=== PATIENT | male | born 1965 | race Caucasian/White ===

== ENCOUNTER 2019-01-06 10:54 | Emergency (ER) | payer OTHER, SELFPAY ==
[2019-01-06 10:55] VITALS: BP 121/75; PULSE 87; RESP 14; TEMP 36.8; O2SAT 98; O2SAT 99; BMI 71.1
--- NOTE | 2019-01-06 11:09 | RAD_ITS ---
STUDY: X-RAY CHEST REASON FOR EXAM: Male, 53 years old. Weakness. Near syncope. TECHNIQUE: Single AP portable view of the chest. COMPARISON: None. FINDINGS: EKG electrodes are seen. The lungs are clear and expanded. There is no demonstrated pleural abnormality. Normal size heart. Normal mediastinum and marce. Normal visualized pulmonary arteries. Normal visualized aortic arch and descending thoracic aorta. Normal visualized thoracic spine. Normal visualized ribs, clavicles, and shoulders. There is no demonstrated abnormality of the visualized soft tissue structures of the upper abdomen. RAD/Chest 1 View (Portable) IMPRESSION: Normal x-ray examination of the chest. Electronically Signed: Greg Sommer MD at 11:27 EST , Service support ,
--- NOTE | 2019-01-06 11:09 | EKG12_ITS ---
Test Reason : NEAR SYNCOPE Blood Pressure : / mmHG Vent. Rate : 090 BPM Atrial Rate : 090 BPM P-R Int : 166 ms QRS Dur : 090 ms QT Int : 342 ms P-R-T Axes : 047 034 031 degrees QTc Int : 418 ms Normal sinus rhythm Nonspecific T wave abnormality Abnormal ECG Confirmed by FRANCO BOSTON, GREGORY ([id number]), photographic editor BRINA WOLFF ([id number]) on 01/10/2019 10:30:10 AM Referred By: FELIPE Confirmed By:GREGORY GAMEZ MD
[2019-01-06] MEDS: 0.9% Normal Saline 1,000 ML 1000 ML IV ×2 (11:12→11:58)
[2019-01-06 11:28] LABS: Absolute Lymphocyte Count 0.94 X10^3/ul (0.83-4.51); Absolute Neutrophil Count 3.9 X10^3/uL (2.0-7.7); Basophil# 0.01 X10^3/uL; Basophil% 0.2 % (0-1); Eosinophils% 1.8 % (0-5); Hematocrit 41.8 % (40-54); Hemoglobin 14.1 g/dl (13.0-16.5); Lymphocyte # 0.94 X10^3/ul (4.0); Lymphocyte % 17.2 % (19-41); Mean Corp Hgb Conc 33.7 g/gl (32-36); Mean Corpuscular Hgb 29.4 pg (27.0-32.0); Mean Corpuscular Volume 87.1 fL (80-94); Mean Platelet Vol. 8.7 fl (6.2-12.0); Monocyte# 0.48 X10^3/uL; Monocyte% 8.8 % (0-10); Neutrophil # 3.92 X10^3/uL (2.7-7.7); Neutrophil % 71.6 % (47-70); POSITIVE COUNT NO; POSITIVE DIFFERENTIAL NO; POSITIVE MORPHOLOGY YES; Platelet Count 109 K/mm3 (150-450); RBC Distribution Width SD 44.5 fl (35.1-43.9); White Blood Count 5.5 K/mm3 (4.4-11.0)
[2019-01-06 11:29] LABS: Differential Indicated SCAN CRITERIA MET
[2019-01-06 11:42] LABS: Anion Gap 11 (5-15); BUN 23 mg/dL (7-18); BUN/Creat Ratio 13.7 RATIO (10-20); Chloride 103 mmol/L (98-107); Creatinine, Serum 1.68 mg/dL (0.70-1.30); EST Glomerular Filtration Rate 45 mL/min (>60); Est Glom Filt Rate - Afr Amer 55 mL/min (>60); Glucose 196 mg/dL (74-106); Potassium 3.9 mmol/L (3.5-5.1); Sodium Level 135 mmol/L (136-145)
[2019-01-06 11:59] VITALS: BP 115/72; PULSE 82; RESP 12; TEMP 36.8; O2SAT 96
[2019-01-06 12:01] VITALS: O2SAT 98
[2019-01-06 12:06] VITALS: BP 102/92; BP 107/66; BP 116/77; PULSE 83; PULSE 86; PULSE 87
--- NOTE | 2019-01-06 13:54 | ED.VISSUMM ---
- ER Visit Summary Date of Service: 01/06/19 Chief Complaint: Near syncope History of Present Illness: The patient is a 53 M with near syncope today at work. He felt hot and sat down. His symptoms resolved. He did not pass out or fall. He has been sick for the last several days and describes nausea, vomiting, diarrhea, headaches, feeling hot, and feeling cold. He has a history of diabetes and hypertension. He also reports a history of asthma. Denies any headache, weakness, or numbness. Denies chest pain or shortness of breath. Denies any bleeding. As any history of syncope or seizure. Physical Examination: Afebrile and vital signs unremarkable. Head and neck are atraumatic. Heart regular rate and rhythm. Lungs clear. Abdomen soft. Cranial nerves grossly intact. Good strength and sensation grossly. Normal affect. Test Results: EKG showed sinus rhythm at a rate of 90. Nonspecific T wave changes. No sign of acute ischemia or infarction pattern. Troponin normal. Platelets 109, sodium 135, glucose 190, BUN 23, creatinine 1.68. Chest x-ray was normal. Emergency Department Course and Treatment: Orthostatics were done and negative. Patient was placed on a monitor. He received a fluid bolus. He had no further symptoms or complaints. No dizziness. No dysrhythmias. No change in his exam. I suspect the patient may have been mildly dehydrated from nausea, vomiting, and diarrhea. His GI symptoms have resolved. He will stay hydrated. Stay rested. Follow-up with primary care. Return right away for any new or worsening issues. Treatment Plan: As above Disposition: Discharge Impression: 1. Near syncope This note was generated with [employer] dictation software. It may contain incorrect words, spelling, and punctuation that were not noted in review of the chart prior to signing ED Disposition - Plan for ED Patient: Referrals: Colby Gonzales DO [Primary Care Provider] -
--- NOTE | 2019-01-06 13:57 | ED.DEP ---
ED Disposition - Plan for ED Patient: Instructions: ED Near Syncope Unkn Referrals: Colby Gonzales DO [Primary Care Provider] -
[2019-01-06 14:22] VITALS: BP 135/69; PULSE 72; RESP 16; O2SAT 98
== END 2019-01-06 14:23 | disposition home or self-care (01) ==
LOC: ED 11:36
PROVIDERS: Emergency Provider Emergency Medicine; Family Provider Student in an Organized Health Care Education/Training Program; PCP Student in an Organized Health Care Education/Training Program
DX: R55 Syncope and collapse (principal); E86.0 Dehydration; E11.9 Type 2 diabetes mellitus without complications; I10 Essential (primary) hypertension; J45.909 Unspecified asthma, uncomplicated
CPT/HCPCS: 71045; 80048; 84484; 85025; 93005; 96360; 96361; 99285

== ENCOUNTER 2021-10-12 08:22 | Inpatient (IN) | payer OTHER, SELFPAY ==
[2021-10-12] VITALS (20 sets, daily range): BP systolic 92–107; BP diastolic 50–77; PULSE 73–88; RESP 15–20; TEMP 36–36.6; O2SAT 83–96; BMI 32.8
--- NOTE | 2021-10-12 09:19 | RAD_ITS ---
STUDY: X-RAY CHEST REASON FOR EXAM: Male, 56 years old. Cough TECHNIQUE: Single AP portable upright view of the chest. COMPARISON: Portable AP upright chest x-ray 01/06/2019 FINDINGS: Ill-defined, patchy subsegmental opacities are noted in the bilateral mid to lower lung zones, consistent with infection There is no demonstrated pleural abnormality. Normal size heart. Normal mediastinum and marce. Normal visualized pulmonary arteries. Normal visualized aortic arch and descending thoracic aorta. Normal visualized thoracic spine. Normal visualized ribs, clavicles, and shoulders. There is no demonstrated abnormality of the visualized soft tissue structures of the upper abdomen. RAD/Chest 1 View (Portable) IMPRESSION: Patchy bilateral infectious pulmonary infiltrates. Differential includes viral pneumonia, such as Covid 19. Electronically Signed: Harish Cueva MD at 9:55 EST , Service support ,
--- NOTE | 2021-10-12 09:19 | EKG12_ITS ---
Test Reason : SOB Blood Pressure : / mmHG Vent. Rate : 079 BPM Atrial Rate : 079 BPM P-R Int : 180 ms QRS Dur : 082 ms QT Int : 370 ms P-R-T Axes : 064 040 032 degrees QTc Int : 424 ms Normal sinus rhythm Normal ECG Confirmed by FRANCO BOSTON, GREGORY ([id number]), writer editor MAEVE CALABRESE ([id number]) on 10/14/2021 10:54:40 AM Referred By: RAMESH Confirmed By:GREGORY GAMEZ MD
[2021-10-12 09:30] LABS: Absolute Lymphocyte Count 0.98 X10^3/uL (0.83-4.51); Absolute Neutrophil Count 4.4 X10^3/uL (2.0-7.7); Basophil# 0.02 X10^3/uL; Basophil% 0.3 % (0-1); Eosinophil# 0.08 X10^3/uL; Eosinophils% 1.4 % (0-5); Hematocrit 40.3 % (40-54); Hemoglobin 13.4 g/dL (13.0-16.5); Lymphocyte # 0.98 X10^3/ul (0.83-4.51); Lymphocyte % 16.8 % (19-41); Mean Corp Hgb Conc 33.3 g/dL (32-36); Mean Corpuscular Hgb 28.6 pg (27.0-32.0); Mean Corpuscular Volume 86.1 fL (80-94); Mean Platelet Vol. 9.6 fl (6.2-12.0); Monocyte# 0.27 X10^3/uL; Monocyte% 4.6 % (0-10); NRBC Flagged by Analyzer 0 % (0-5); Neutrophil # 4.39 X10^3/uL (2.7-7.7); Platelet Count 167 K/mm3 (150-450); RBC Distribution Width CV 14.4 % (11.6-14.6); RBC Distribution Width SD 45.7 fl (35.1-43.9); Red Blood Count 4.68 M/mm3 (4.6-6.2); White Blood Count 5.9 K/mm3 (4.4-11.0)
[2021-10-12 09:47] LABS: ALB/GLOB Ratio 0.6 RATIO (0.9-2.4); AST(SGOT) 31 U/L (15-37); Alanine Aminotransfer ALT/SGPT 33 U/L (16-61); Albumin, Serum 2.6 g/dL (3.2-5.0); Alkaline Phosphatase 51 U/L (45-117); Anion Gap 11 (5-15); BUN 73 mg/dL (7-18); Calcium,Total 8.8 mg/dL (8.5-10.1); Chloride 106 mmol/L (98-107); Creatinine, Serum 1.78 mg/dL (0.70-1.30); EST Glomerular Filtration Rate 42 mL/min (>60); Est Glom Filt Rate - Afr Amer 51 mL/min (>60); Estimated Creatinine Clearance 46.71 ml/min; Globulin 4.7 g/dL (2.2-4.2); Glucose 179 mg/dL (74-106); Lactic Acid 1.5 mmol/L (0.4-1.9); Protein, Total 7.3 g/dL (6.4-8.2); Sodium Level 136 mmol/L (136-145); Troponin-I HS 5 pg/mL (3.0-78.0)
--- NOTE | 2021-10-12 09:59 | EDS_ITS ---
HPI History of Present Illness Chief Complaint: Shortness of Breath Narrative Narrative: 56-year-old male presenting with shortness of breath. He states he has had Covid for 7 days. He was diagnosed at the [facility] pharmacy. He states that he did not involve his primary care physician and has not been referred for monoclonal antibodies. He is not having chest pain but he does state he has shortness of breath with exertion. He denies having fevers or chills. He states he does not have body aches. He does have some diarrhea and decreased p.o. intake. Patient has significant history of diabetes and hypertension. The patient's also states he has asthma. Patient has not been wheezing that he knows of. He states that his blood sugars have been over 200 at home. Patient already was previously vaccinated for COVID-19. [facility] Medical History Asthma Diabetes Lipoma of abdominal wall Home Medications albuterol sulfate [Ventolin Hfa (SP)] 2 puff INHALATION Q6H PRN PRN 11/14/16 [History Last Taken Unknown] budesonide-formoterol [Symbicort 160/4.5 Mcg Inhaler (SP)] 2 puff INHALATION BID 11/14/16 [History Last Taken Unknown] lisinopril [Qbrelis] 0.5 mg PO DAILY 11/14/16 [History Last Taken Unknown] montelukast 10 mg PO DAILY 11/14/16 [History Last Taken Unknown] empagliflozin-metformin [Synjardy] 1 tab PO BID 10/12/21 [History Last Taken Unknown] glimepiride 4 mg PO BID 10/12/21 [History Last Taken Unknown] Allergy/AdvReac Type Severity Reaction Status Date / Time No Known Allergies Allergy Verified 10/12/21 08:24 Surgical History H/O hernia repair Hx of tonsillectomy Social History Smoking Status: Never smoker ROS ROS ED Constitutional Constitutional ED: Denies chills or fever(s) Eyes Eyes: Denies blurry vision or diplopia ENT ENT ED: Denies rhinorrhea or sore throat Cardiovascular Cardiovascular: Denies chest pain or palpitations Respiratory/Chest Respiratory/Chest: Reports cough and dyspnea Gastrointestinal Gastrointestinal: Reports diarrhea; Denies abdominal pain, nausea or vomiting Genitourinary Genitourinary ED: Denies dysuria or hematuria Musculoskeletal Musculoskeletal: Denies arthralgias, back pain, myalgias or neck pain Integumentary Denies Abrasions or rash Neurologic Neurologic: Denies headache(s) or paresthesias EXAM Physical Exam Const Vital Signs: 10/12/21 08:23 10/12/21 08:34 10/12/21 09:24 Temperature 97.2 F L 97.2 F L 97.3 F L Temperature Source Temporal Temporal Temporal Pulse Rate 78 76 74 Respiratory Rate 20 H 20 H 18 Respiratory Effort Non-Labored Short of Breath Respiratory Depth Normal Respiratory Pattern Normal Blood Pressure 103/77 92/58 L 97/51 L Blood Pressure Mean 85 69 66 Pulse Ox 92 93 89 Pulse Ox [AMBULATING on Room Air] Pulse Ox [AMBULATING with Oxygen #1] Pulse Ox [AMBULATING with Oxygen #2] Pulse Ox [At REST on Room Air] Pulse Ox [At REST with Oxygen] Oxygen Delivery Method Room Air Room Air Room Air Oxygen Flow Rate (L/min) Oxygen Flow Rate (L/min) [AMBULATING with Oxygen #1] Oxygen Flow Rate (L/min) [AMBULATING with Oxygen #2] Oxygen Flow Rate (L/min) [At REST with Oxygen] 10/12/21 10:15 10/12/21 10:16 10/12/21 10:24 Temperature 97.2 F L Temperature Source Temporal Pulse Rate 76 78 Respiratory Rate 16 19 H Respiratory Effort Respiratory Depth Respiratory Pattern Blood Pressure 95/61 95/50 L Blood Pressure Mean 72 65 Pulse Ox 89 94 90 Pulse Ox [AMBULATING on Room Air] Pulse Ox [AMBULATING with Oxygen #1] Pulse Ox [AMBULATING with Oxygen #2] Pulse Ox [At REST on Room Air] Pulse Ox [At REST with Oxygen] Oxygen Delivery Method Room Air Nasal Cannula Nasal Cannula Oxygen Flow Rate (L/min) 2 2 Oxygen Flow Rate (L/min) [AMBULATING with Oxygen #1] Oxygen Flow Rate (L/min) [AMBULATING with Oxygen #2] Oxygen Flow Rate (L/min) [At REST with Oxygen] 10/12/21 11:10 Temperature Temperature Source Pulse Rate Respiratory Rate Respiratory Effort Respiratory Depth Respiratory Pattern Blood Pressure Blood Pressure Mean Pulse Ox Pulse Ox [AMBULATING on Room Air] 83 Pulse Ox [AMBULATING with Oxygen #1] 86 Pulse Ox [AMBULATING with Oxygen #2] 91 Pulse Ox [At REST on Room Air] 89 Pulse Ox [At REST with Oxygen] 91 Oxygen Delivery Method Oxygen Flow Rate (L/min) Oxygen Flow Rate (L/min) [AMBULATING with Oxygen #1] 2 Oxygen Flow Rate (L/min) [AMBULATING with Oxygen #2] 3 Oxygen Flow Rate (L/min) [At REST with Oxygen] 2 Positive well nourished General Appearance ED: NAD; Negative for pallor HEENT Reports moist mucous membranes atraumatic Eyes PERRL and EOMs intact bilaterally Resp normal respiratory effort Auscultation: rales bilateral GI non-tender and non-distended Palpation: soft Neuro oriented x3 Sensorium / Orientation: alert Psych mental status grossly normal Thought Process: normal thought process Skin General Skin Exam: Negative for jaundice or pallor Rashes: no rashes MDM MDM MDM Narrative Medical decision making narrative: Patient presenting with shortness of breath and history of Covid. Initially his oxygen saturations were good. I did order basic lab work and his CBC was unremarkable. Creatinine is near baseline but still elevated at 1.78. Electrolytes are normal. Lactic acid normal at 1.5. Liver function tests are normal. Troponin is negative. EKG on my interpretation shows a normal sinus rhythm with a ventricular rate of 79 bpm without sign of ischemic change. Chest x-ray on my interpretation shows multiple bilateral pulmonary infiltrates and the radiologist does agree. Patient had an elevated D-dimer and required a CTA to rule out PEs. This was performed and there are no PEs or dissection noted on the CT of the chest. There is bilateral pulmonary infiltrates. Patient was noted to be dropping his oxygen saturations down to 89%. He was ambulated and dropped down to 83%. He required 3 L to get him back up to 95%. Patient was very symptomatic and it took multiple minutes for him to feel improved. I feel at this point the patient would probably benefit from inpatient treatment. He is given dexamethasone. I spoke with the hospitalist. Patient admitted in stable condition. Impression: 1. COVID-19 pneumonitis 2. Hypoxic respiratory failure Lab Data Attestation: I reviewed the patient's lab results. Labs: Laboratory Results - last 24 hr 10/12/21 10/12/21 10/12/21 08:44 08:44 08:44 WBC 5.9 RBC 4.68 Hgb 13.4 Hct 40.3 MCV 86.1 MCH 28.6 MCHC 33.3 RDW Std Deviation 45.7 H RDW Coeff of Jose 14.4 Plt Count 167 MPV 9.6 Immature Gran % (Auto) 1.900 H Neut % (Auto) 75.0 H Lymph % (Auto) 16.8 L [place] % (Auto) 4.6 Eos % (Auto) 1.4 Baso % (Auto) 0.3 Absolute Neuts (auto) 4.4 Absolute Lymphs (auto) 0.98 Nucleated RBC % 0 D-Dimer Quant (PE/DVT) Sodium 136 Potassium 4.0 Chloride 106 Carbon Dioxide 19.0 L Anion Gap 11 BUN 73 H Creatinine 1.78 H Estim Creat Clear Calc 46.71 Est GFR (MDRD) Af Amer 51 L Est GFR (MDRD) Non-Af 42 L BUN/Creatinine Ratio 41.0 H Glucose 179 H Lactic Acid 1.5 Calcium 8.8 Total Bilirubin 0.40 AST 31 ALT 33 Alkaline Phosphatase 51 Troponin I High Sens 5 Total Protein 7.3 Albumin 2.6 L Globulin 4.7 H Albumin/Globulin Ratio 0.6 L 10/12/21 08:44 WBC RBC Hgb Hct MCV MCH MCHC RDW Std Deviation RDW Coeff of Jose Plt Count MPV Immature Gran % (Auto) Neut % (Auto) Lymph % (Auto) [place] % (Auto) Eos % (Auto) Baso % (Auto) Absolute Neuts (auto) Absolute Lymphs (auto) Nucleated RBC % D-Dimer Quant (PE/DVT) 0.82 H* Sodium Potassium Chloride Carbon Dioxide Anion Gap BUN Creatinine Estim Creat Clear Calc Est GFR (MDRD) Af Amer Est GFR (MDRD) Non-Af BUN/Creatinine Ratio Glucose Lactic Acid Calcium Total Bilirubin AST ALT Alkaline Phosphatase Troponin I High Sens Total Protein Albumin Globulin Albumin/Globulin Ratio Radiography Diagnostic Testing: Clinical Impression(s) from Imaging Studies Chest X-Ray 10/12/21 09:19 IMPRESSION: Patchy bilateral infectious pulmonary infiltrates. Differential includes viral pneumonia, such as Covid 19. Electronically Signed: Harish Cueva MD at 9:55 EST , Service support , Chest CTA 10/12/21 10:44 IMPRESSION: No demonstrated pulmonary embolism or arterial dissection. Severe diffuse bilateral groundglass pulmonary opacities most likely represent acute infectious process such as Covid pneumonia. Electronically Signed: Chandu Amaral MD at 11:43 EST Tel , Service support , Discharge Plan Triage Chief Complaint: Shortness of Breath ED Provider: Bishop Mix Dx/Rx/DC Orders Primary Care Provider: Colby Gonzales
[2021-10-12 10:27] LABS: D-Dimer Quantitative (DVT/PE) 0.82 FEU/ug/m (0.27-0.49)
--- NOTE | 2021-10-12 10:44 | CT_ITS ---
STUDY: CTA CHEST REASON FOR EXAM: Male, 56 years old. Dyspnea RADIATION DOSAGE (If Supplied By Facility): CTDIvol = ( 14.71 ) mGy, DLP = ( 506.63 ) mGycm TECHNIQUE: The examination was performed with the intravenous administration of IV 100mL Isovue-370. Post-processing of the angiographic images was performed, with multiplanar reformation and 3D reconstruction. Individualized dose optimization techniques were used for this CT. COMPARISON: None. FINDINGS: Normal enhancement of the main pulmonary artery and right and left pulmonary arteries. Normal enhancement of the bilateral peripheral pulmonary arteries. There is no demonstrated pulmonary embolism. Normal thoracic aorta and visualized great vessels. There is no demonstrated aortic dissection. Normal heart and pericardium. Normal mediastinum. Normal hilar regions. Normal visualized trachea and bronchi. The lungs are well expanded. Severe diffuse groundglass pulmonary opacities bilaterally. Normal chest wall structures. Normal osseous structures. Normal visualized upper abdomen. CT/CTA Chest W/WO Contrast IMPRESSION: No demonstrated pulmonary embolism or arterial dissection. Severe diffuse bilateral groundglass pulmonary opacities most likely represent acute infectious process such as Covid pneumonia. Electronically Signed: Chandu Amaral MD at 11:43 EST Tel , Service support ,
[2021-10-12] MEDS: dexAMETHasone 10 MG/ML Vial 6 MG IV (11:59)
--- NOTE | 2021-10-12 12:02 | HP.PCM.HOS_ITS ---
HPI - General General Date of Admission: 10/12/21 Date of Service: 10/12/21 Chief Complaint: Progressive shortness of breath?1 week HPI Narrative SAIMA BROWN, is a 56 M who presents with above ongoing for 1 week. Patient stated that he has been vaccinated against COVID-19 with a J&J vaccine in December of this year. He believes he got infected at work as several coworkers have also COVID-19 infection. He denies any loss of smell or taste. Denies any fever or chills. He admits to diarrhea. He has not had any diarrhea today. Vitals in the ED showed low blood pressure. His D-dimer was elevated at 0.82. Chest x-ray and CT of the chest showed interstitial pneumonitis, negative PE. His creatinine is elevated at 1.78 and BUN is 73, bicarbonate is 19. PFSH Medical History Asthma Diabetes Lipoma of abdominal wall Home Medications albuterol sulfate [Ventolin Hfa (SP)] 2 puff INHALATION Q6H PRN PRN 11/14/16 [History Last Taken Unknown] budesonide-formoterol [Symbicort 160/4.5 Mcg Inhaler (SP)] 2 puff INHALATION BID 11/14/16 [History Last Taken Unknown] lisinopril [Qbrelis] 0.5 mg PO DAILY 11/14/16 [History Last Taken Unknown] montelukast 10 mg PO DAILY 11/14/16 [History Last Taken Unknown] empagliflozin-metformin [Synjardy] 1 tab PO BID 10/12/21 [History Last Taken Unknown] glimepiride 4 mg PO BID 10/12/21 [History Last Taken Unknown] Allergy/AdvReac Type Severity Reaction Status Date / Time No Known Allergies Allergy Verified 10/12/21 08:24 Family History (Updated 10/12/21 @ 16:[address] Yamilka Burden MD) Mother COPD (chronic obstructive pulmonary disease) Father CVA (cerebral vascular accident) Surgical History H/O hernia repair Hx of tonsillectomy Social History (Updated 10/12/21 @ 16:[address] Yamilka Burden MD) household members: spouse Smoking Status: Never smoker alcohol intake: never substance use type: does not use ROS ROS Narrative Constitutional: Reports: Malaise, Weakness, Fatigue. Denies: Anorexia, Chills, Fever, Night Sweats, Weight Change Eyes: Denies: Blurred vision, Cataracts, Conjunctivae Inflammation, Pain, Redness, Vision Change HEENT: Denies: Difficulty Hearing, Difficulty Swallowing, Head Aches, Hearing Changes, Sinus Congestion, Sinus Drainage Cardiovascular: Denies: Chest Pain, Orthopnea, Palpitations Respiratory: Denies: Cough, Shortness of breath at rest, Sputum production Gastrointestinal: Admits to diarrhea denies: Abdominal Pain, Nausea, Vomiting Genitourinary: Denies: Dysuria Musculoskeletal: Denies: Joint Pain, Joint stiffness, Joint swelling, Joint Tend erness Skin: Denies: Rash, Wounds Neurological: Denies: Numbness, Tingling, Focal weakness Vital Signs Vital Signs Vital Signs: 10/12/21 08:23 10/12/21 08:34 10/12/21 09:24 Temperature 97.2 F L 97.2 F L 97.3 F L Temperature Source Temporal Temporal Temporal Pulse Rate 78 76 74 Respiratory Rate 20 H 20 H 18 Respiratory Effort Non-Labored Short of Breath Respiratory Depth Normal Respiratory Pattern Normal Blood Pressure 103/77 92/58 L 97/51 L Blood Pressure Mean 85 69 66 Pulse Ox 92 93 89 Pulse Ox [AMBULATING on Room Air] Pulse Ox [AMBULATING with Oxygen #1] Pulse Ox [AMBULATING with Oxygen #2] Pulse Ox [At REST on Room Air] Pulse Ox [At REST with Oxygen] Oxygen Delivery Method Room Air Room Air Room Air Oxygen Flow Rate (L/min) Oxygen Flow Rate (L/min) [AMBULATING with Oxygen #1] Oxygen Flow Rate (L/min) [AMBULATING with Oxygen #2] Oxygen Flow Rate (L/min) [At REST with Oxygen] 10/12/21 10:15 10/12/21 10:16 10/12/21 10:24 Temperature 97.2 F L Temperature Source Temporal Pulse Rate 76 78 Respiratory Rate 16 19 H Respiratory Effort Respiratory Depth Respiratory Pattern Blood Pressure 95/61 95/50 L Blood Pressure Mean 72 65 Pulse Ox 89 94 90 Pulse Ox [AMBULATING on Room Air] Pulse Ox [AMBULATING with Oxygen #1] Pulse Ox [AMBULATING with Oxygen #2] Pulse Ox [At REST on Room Air] Pulse Ox [At REST with Oxygen] Oxygen Delivery Method Room Air Nasal Cannula Nasal Cannula Oxygen Flow Rate (L/min) 2 2 Oxygen Flow Rate (L/min) [AMBULATING with Oxygen #1] Oxygen Flow Rate (L/min) [AMBULATING with Oxygen #2] Oxygen Flow Rate (L/min) [At REST with Oxygen] 10/12/21 11:10 Temperature Temperature Source Pulse Rate Respiratory Rate Respiratory Effort Respiratory Depth Respiratory Pattern Blood Pressure Blood Pressure Mean Pulse Ox Pulse Ox [AMBULATING on Room Air] 83 Pulse Ox [AMBULATING with Oxygen #1] 86 Pulse Ox [AMBULATING with Oxygen #2] 91 Pulse Ox [At REST on Room Air] 89 Pulse Ox [At REST with Oxygen] 91 Oxygen Delivery Method Oxygen Flow Rate (L/min) Oxygen Flow Rate (L/min) [AMBULATING with Oxygen #1] 2 Oxygen Flow Rate (L/min) [AMBULATING with Oxygen #2] 3 Oxygen Flow Rate (L/min) [At REST with Oxygen] 2 Weight Weight: 104 kg Body Mass Index (BMI) 32.8 Physical Exam Narrative Physical exam: General: Alert, Oriented x3, Cooperative, No apparent distress, Well developed HEENT: Atraumatic Oral: Moist Mucosa Neck: Supple Lungs: Clear to auscultation Cardiovascular: HS I+II, regular, no murmurs Abdomen: Bowel Sounds Present, Soft, Non Tender Extremities: No edema Results Lab / Micro Data Result Diagrams: 10/12/21 08:44 10/12/21 08:44 Labs: Laboratory Results - last 24 hr 10/12/21 08:44: WBC 5.9, RBC 4.68, Hgb 13.4, Hct 40.3, MCV 86.1, MCH 28.6, MCHC 33.3, RDW Std Deviation 45.7 H, RDW Coeff of Jose 14.4, Plt Count 167, MPV 9.6, Immature Gran % (Auto) 1.900 H, Neut % (Auto) 75.0 H, Lymph % (Auto) 16.8 L, [place] % (Auto) 4.6, Eos % (Auto) 1.4, Baso % (Auto) 0.3, Absolute Neuts (auto) 4.4, Absolute Lymphs (auto) 0.98, Nucleated RBC % 0 10/12/21 08:44: Sodium 136, Potassium 4.0, Chloride 106, Carbon Dioxide 19.0 L, Anion Gap 11, BUN 73 H, Creatinine 1.78 H, Estim Creat Clear Calc 46.71, Est GFR (MDRD) Af Amer 51 L, Est GFR (MDRD) Non-Af 42 L, BUN/Creatinine Ratio 41.0 H, Glucose 179 H, Calcium 8.8, Total Bilirubin 0.40, AST 31, ALT 33, Alkaline Phosphatase 51, Troponin I High Sens 5, Total Protein 7.3, Albumin 2.6 L, Heather bulin 4.7 H, Albumin/Globulin Ratio 0.6 L 10/12/21 08:44: Lactic Acid 1.5 10/12/21 08:44: D-Dimer Quant (PE/DVT) 0.82 H* Radiology Impression Chest X-Ray 10/12/21 09:19 IMPRESSION: Patchy bilateral infectious pulmonary infiltrates. Differential includes viral pneumonia, such as Covid 19. Electronically Signed: Harish Cueva MD at 9:55 EST , Service support , Chest CTA 10/12/21 10:44 IMPRESSION: No demonstrated pulmonary embolism or arterial dissection. Severe diffuse bilateral groundglass pulmonary opacities most likely represent acute infectious process such as Covid pneumonia. Electronically Signed: Chandu Amaral MD at 11:43 EST Tel , Service support , Assessment & Plan Assessment/Plan (1) Acute respiratory failure: QUALIFIERS: Respiratory failure complication: hypoxia Qualified Code(s): J96.01 - Acute respiratory failure with hypoxia (2) Pneumonia due to COVID-19 virus: (3) YOVANY (acute kidney injury): (4) Metabolic acidosis: PLAN: 1. Acute hypoxic respiratory failure secondary to acute COVID-19 pneumonia Patient is currently on 2 L of oxygen. He is vaccinated with a J&J vaccine Chest x-ray and CT of the chest suggestive of COVID-19; acute PE ruled out Symptoms started less than 1 week Continue on Decadron and remdesivir Encourage use of incentive spirometer 2. Acute diarrhea secondary to COVID-19 infection, no diarrhea today, will give gentle IV fluids 3. [place] metabolic acidosis secondary to #2, will monitor 4. Type II DM, hold oral hypoglycemics, monitor on insulin sliding scale 5. DVT prophylaxis?Lovenox subcu I discussed and explained in details the various types of CODE STATUS-full code, DNR CCA, DNR CC. Patient chose full code Time spent discussing CODE STATUS 18 minutes Charges/Coding Visit Charges Inpatient E&M: 40461 Init Hosp L3 Procedures Hospitalists Procedures: 01254 Advncd Care Plan 30 Min
[2021-10-12] MEDS: Glimepiride 4 MG Tablet PO (17:38)
[2021-10-12] MEDS: Insulin Lispro 100 UNIT/ML INSULN.PEN SC ×2 (17:40→21:44)
[2021-10-12] MEDS: 0.9% Saline Lock 10 ML Syringe IV (17:50)
[2021-10-12] MEDS: 0.9% Normal Saline 1,000 ML 75 ML IV (17:51)
[2021-10-12 18:20] LABS: Bedside Glucose 257 mg/dL (70-110)
[2021-10-12 18:55] LABS: Probe Check PASS
[2021-10-12] MEDS: Budesonide Respules 0.5 MG/2 ML AMPUL.NEB. INHALATION (19:12)
[2021-10-12] MEDS: Enoxaparin 30 MG/0.3 ML Syringe SC (21:43)
--- NOTE | 2021-10-12 22:43 | NURSING ---
pt up to bathroom. dropped to 85% on 2l n/c. while in bed encouraged to take deep breaths in. increased oxygen to 4l n/c. 02 sats slowly coming up.
[2021-10-12] MEDS: Famotidine 20 MG Tablet PO (23:02)
[2021-10-13] VITALS (10 sets, daily range): BP systolic 105–116; BP diastolic 63–72; PULSE 68–93; RESP 16–20; TEMP 36.1–36.8; O2SAT 91–95
[2021-10-13 05:21] LABS: Bedside Glucose 184 mg/dL (70-110)
--- NOTE | 2021-10-13 07:02 | NURSING ---
blood sugar noted at 67 this am. cup of orange juice given to patient. pt denies c/o.
[2021-10-13 07:06] LABS: Bedside Glucose 67 mg/dL (70-110)
[2021-10-13] MEDS: Budesonide Respules 0.5 MG/2 ML AMPUL.NEB. INHALATION ×2 (07:14→19:27)
[2021-10-13 08:05] LABS: Absolute Lymphocyte Count 0.96 X10^3/uL (0.83-4.51); Absolute Neutrophil Count 4.7 X10^3/uL (2.0-7.7); Basophil# 0.03 X10^3/uL; Basophil% 0.5 % (0-1); Eosinophil# 0.05 X10^3/uL; Eosinophils% 0.8 % (0-5); Hematocrit 36.7 % (40-54); Lymphocyte # 0.96 X10^3/ul (0.83-4.51); Lymphocyte % 15.4 % (19-41); Mean Corp Hgb Conc 32.7 g/dL (32-36); Mean Corpuscular Hgb 28.7 pg (27.0-32.0); Mean Corpuscular Volume 87.8 fL (80-94); Mean Platelet Vol. 9.8 fl (6.2-12.0); Monocyte# 0.34 X10^3/uL; Monocyte% 5.4 % (0-10); NRBC Flagged by Analyzer 0 % (0-5); Neutrophil # 4.65 X10^3/uL (2.7-7.7); Neutrophil % 74.4 % (47-70); POSITIVE MORPHOLOGY YES; Platelet Count 181 K/mm3 (150-450); RBC Distribution Width CV 14.3 % (11.6-14.6); Red Blood Count 4.18 M/mm3 (4.6-6.2); White Blood Count 6.3 K/mm3 (4.4-11.0)
[2021-10-13 08:09] LABS: Differential Indicated SCAN CRITERIA MET
[2021-10-13 08:22] LABS: ALB/GLOB Ratio 0.6 RATIO (0.9-2.4); AST(SGOT) 25 U/L (15-37); Alanine Aminotransfer ALT/SGPT 29 U/L (16-61); Albumin, Serum 2.5 g/dL (3.2-5.0); Alkaline Phosphatase 48 U/L (45-117); Anion Gap 6 (5-15); BUN 56 mg/dL (7-18); BUN/Creat Ratio 44.4 RATIO (10-20); Calcium,Total 8.3 mg/dL (8.5-10.1); Chloride 112 mmol/L (98-107); Creatinine, Serum 1.26 mg/dL (0.70-1.30); EST Glomerular Filtration Rate 62 mL/min (>60); Est Glom Filt Rate - Afr Amer 75 mL/min (>60); Estimated Creatinine Clearance 65.98 ml/min; Globulin 4.4 g/dL (2.2-4.2); Glucose 72 mg/dL (74-106); Potassium 4.3 mmol/L (3.5-5.1); Protein, Total 6.9 g/dL (6.4-8.2); Sodium Level 140 mmol/L (136-145)
[2021-10-13] MEDS: Glimepiride 4 MG Tablet PO (08:27)
[2021-10-13] MEDS: dexAMETHasone 2 MG TABLET 6 MG PO (08:28)
[2021-10-13] MEDS: Enoxaparin 30 MG/0.3 ML Syringe SC ×2 (08:29→21:26)
[2021-10-13] MEDS: Montelukast 10 MG Tablet PO (08:29)
[2021-10-13 09:47] LABS: Differential Comment SCANNED; Reactive Lymphocyte 1+
--- NOTE | 2021-10-13 10:02 | PN.HOSP_ITS ---
Subjective Subjective Follow-up on acute hypoxic respiratory failure/acute COVID-19 pneumonia: Patient was seen and examined. He feels improved. Remains on 3 L oxygen. Denies any fever or chills. Objective Data Objective Data Vital Signs: Vital Signs Temp Pulse Resp BP Pulse Ox 97.9 F 74 20 H 110/65 93 10/13/21 08:33 10/13/21 08:33 10/13/21 08:33 10/13/21 08:33 10/13/21 08:33 Oxygen Flow Rate (L/min) [ 3 AMBULATING with Oxygen #2] Oxygen Flow Rate (L/min) [ 2 AMBULATING with Oxygen #1] Oxygen Flow Rate (L/min) [At 2 REST with Oxygen] Oxygen Flow Rate (L/min) 3 Oxygen Delivery Method Nasal Cannula Weight: 92.2 kg Body Mass Index (BMI) 32.8 Intake & Output: Intake and Output for Last 24 Hours 10/11/21 10/12/21 10/13/21 23:59 23:59 23:59 Intake Total 970 / 970 1000 / 1000 Output Total 600 / 600 Balance 370 / 370 1000 / 1000 Lab / Micro Data Result Diagrams: 10/13/21 06:15 10/13/21 06:15 Labs: Laboratory Results - last 24 hr 10/12/21 08:44: D-Dimer Quant (PE/DVT) 0.82 H* 10/12/21 15:40: COVID-19 ([place]) Positive 10/12/21 17:36: POC Glucose 257 H 10/12/21 21:41: POC Glucose 184 H 10/13/21 06:15: WBC 6.3, RBC 4.18 L, Hgb 12.0 L, Hct 36.7 L, MCV 87.8, MCH 28.7, MCHC 32.7, RDW Std Deviation 46.0 H, RDW Coeff of Jose 14.3, Plt Count 181, MPV 9.8, Immature Gran % (Auto) 3.500 H, Neut % (Auto) 74.4 H, Lymph % (Auto) 15.4 L , [place] % (Auto) 5.4, Eos % (Auto) 0.8, Baso % (Auto) 0.5, Absolute Neuts (auto) 4.7, Absolute Lymphs (auto) 0.96, Nucleated RBC % 0, Differential Comment SCANNED, Reactive Lymphocytes 1+ 10/13/21 06:15: Sodium 140, Potassium 4.3, Chloride 112 H, Carbon Dioxide 22.0, Anion Gap 6, BUN 56 H, Creatinine 1.26, Estim Creat Clear Calc 65.98, Est GFR (MDRD) Af Amer 75, Est GFR (MDRD) Non-Af 62, BUN/Creatinine Ratio 44.4 H, Glucose 72 L, Calcium 8.3 L, Total Bilirubin 0.40, AST 25, ALT 29, Alkaline Phosphatase 48, Total Protein 6.9, Albumin 2.5 L, Globulin 4.4 H, Albumin/Globulin Ratio 0.6 L 10/13/21 06:58: POC Glucose 67 L Micro: Microbiology 10/12/21 15:40 Mucosa - Nasopharyngeal Respiratory Panel (PCR) - Final 10/12/21 17:45 Urine, Random Legionella Antigen - Final 10/12/21 17:45 Urine, Random Streptococcus pneumoniae Antigen (M - Final Radiography Diagnostic Testing: Radiology Impression Chest CTA 10/12/21 10:44 IMPRESSION: No demonstrated pulmonary embolism or arterial dissection. Severe diffuse bilateral groundglass pulmonary opacities most likely represent acute infectious process such as Covid pneumonia. Electronically Signed: Chandu Amaral MD at 11:43 EST Tel , Service support , Physical Exam Narrative Physical exam: General: Alert, Oriented x3, Cooperative, No apparent distress, Well developed HEENT: Atraumatic Oral: Moist Mucosa Neck: Supple Lungs: Diminished to auscultation Cardiovascular: HS I+II, regular, no murmurs Abdomen: Bowel Sounds Present, Soft, Non Tender Extremities: No edema Assessment & Plan Assessment/Plan (1) Acute respiratory failure: QUALIFIERS: Respiratory failure complication: hypoxia Qualified Code(s): J96.01 - Acute respiratory failure with hypoxia (2) Pneumonia due to COVID-19 virus: (3) YOVANY (acute kidney injury): (4) Metabolic acidosis: PLAN: 1. Acute hypoxic respiratory failure secondary to acute COVID-19 pneumonia Patient is currently on 3 L of oxygen. He is vaccinated with a J&J vaccine Chest x-ray and CT of the chest suggestive of COVID-19; acute PE ruled out Symptoms started less than 1 week Continue on Decadron and remdesivir Encourage use of incentive spirometer Trial of Lasix 40 mg IV x1 2. Acute diarrhea secondary to COVID-19 infection, resolved 3. Non-gap metabolic acidosis secondary to #2, will monitor 4. Type II DM, patient with episode of hypoglycemia this morning Decrease glimepiride to 2 mg daily, continue on low-dose insulin sliding scale 5. DVT prophylaxis?Lovenox subcu Charges/Coding Visit Charges Inpatient E&M: 04561 Subs Hosp L2
[2021-10-13 11:25] LABS: Bedside Glucose 195 mg/dL (70-110)
[2021-10-13] MEDS: Insulin Lispro 100 UNIT/ML INSULN.PEN SC ×2 (12:38→16:43)
[2021-10-13] MEDS: Furosemide 40 MG/4 ML Vial IV (15:28)
[2021-10-13] MEDS: Glimepiride 2 MG Tablet PO (16:43)
[2021-10-13 16:51] LABS: Bedside Glucose 176 mg/dL (70-110)
[2021-10-13] MEDS: Famotidine 20 MG Tablet PO (21:26)
[2021-10-13] MEDS: guaiFENesin 600 MG Tablet PO (21:26)
[2021-10-13 21:36] LABS: Bedside Glucose 151 mg/dL (70-110)
[2021-10-14] VITALS (7 sets, daily range): BP systolic 113–138; BP diastolic 68–72; PULSE 70–90; RESP 18–20; TEMP 36.8–37.6; O2SAT 86–99
[2021-10-14 07:00] LABS: Bedside Glucose 140 mg/dL (70-110)
[2021-10-14 07:23] LABS: Absolute Lymphocyte Count 0.95 X10^3/uL (0.83-4.51); Absolute Neutrophil Count 6.5 X10^3/uL (2.0-7.7); Basophil# 0.05 X10^3/uL; Basophil% 0.6 % (0-1); Eosinophil# 0.04 X10^3/uL; Eosinophils% 0.5 % (0-5); Hematocrit 37.9 % (40-54); Hemoglobin 12.4 g/dL (13.0-16.5); Lymphocyte # 0.95 X10^3/ul (0.83-4.51); Lymphocyte % 11.2 % (19-41); Mean Corp Hgb Conc 32.7 g/dL (32-36); Mean Corpuscular Hgb 28.7 pg (27.0-32.0); Mean Corpuscular Volume 87.7 fL (80-94); Mean Platelet Vol. 9.4 fl (6.2-12.0); Monocyte# 0.56 X10^3/uL; Monocyte% 6.6 % (0-10); NRBC Flagged by Analyzer 0 % (0-5); Neutrophil # 6.54 X10^3/uL (2.7-7.7); Neutrophil % 77.1 % (47-70); Platelet Count 190 K/mm3 (150-450); RBC Distribution Width CV 14.1 % (11.6-14.6); Red Blood Count 4.32 M/mm3 (4.6-6.2); White Blood Count 8.5 K/mm3 (4.4-11.0)
[2021-10-14] MEDS: Budesonide Respules 0.5 MG/2 ML AMPUL.NEB. INHALATION (07:27)
[2021-10-14] MEDS: Albuterol Sulfate 8 gm Inhaler (60 puffs) 2 PUFF INHALATION (07:31)
[2021-10-14 07:56] LABS: ALB/GLOB Ratio 0.6 RATIO (0.9-2.4); AST(SGOT) 23 U/L (15-37); Alanine Aminotransfer ALT/SGPT 31 U/L (16-61); Albumin, Serum 2.5 g/dL (3.2-5.0); Alkaline Phosphatase 49 U/L (45-117); Anion Gap 6 (5-15); BUN 41 mg/dL (7-18); Calcium,Total 8.5 mg/dL (8.5-10.1); Chloride 107 mmol/L (98-107); Creatinine, Serum 1.14 mg/dL (0.70-1.30); EST Glomerular Filtration Rate 70 mL/min (>60); Est Glom Filt Rate - Afr Amer 85 mL/min (>60); Estimated Creatinine Clearance 72.93 ml/min; Globulin 4.5 g/dL (2.2-4.2); Glucose 123 mg/dL (74-106); Potassium 4.3 mmol/L (3.5-5.1); Sodium Level 138 mmol/L (136-145)
[2021-10-14] MEDS: guaiFENesin 600 MG Tablet PO (09:02)
[2021-10-14] MEDS: Glimepiride 2 MG Tablet PO (09:02)
[2021-10-14] MEDS: Montelukast 10 MG Tablet PO (09:02)
[2021-10-14] MEDS: Enoxaparin 30 MG/0.3 ML Syringe SC (09:02)
[2021-10-14] MEDS: 0.9% Saline Lock 10 ML Syringe IV (09:03)
--- NOTE | 2021-10-14 09:45 | CASEMGMT ---
DONAVAN LANTIGUA Assessment: Face to Face with pt for initial transition planning/care coordination assessment. DONAVAN LANTIGUA introduced self and role at [facility], pt voices understanding and consents to assessment. Pt is A/O x4 and answers all questions appropriately at this time. Pt sitting up in bed with O2 on in no distress. Care providers, pharmacy, and demographics verified/updated. Admitting Dx: COVID PCP:[facility]: Pt denies. Preferred Pharmacy: [facility] Insurance: MMO Prescription Benefit: yes LW/HPOA: Pt denies having a LW/DPOA and denies need for info regarding AD. LNOK: Kiesha Linton, Living Arrangements: Pt lives with in a two story house with 6 steps to enter with a rail. Pt reports she is I in ADL's and denies concerns at home. Transportation: Pt drives self and denies concerns with transportation. DME/HHC/SNF: Pt has a BGM at home with supplies, lancets and strips. Pt also has a nebulizer. Recommended that pt obtain a pulse ox to measure his O2 levels. Pt denies previous HHC or SNF stays. Pt was first tested at [facility]. He emailed this RN CM the positive result, this was forwarded to [facility]. Pt states his does not have sx of COVID. He is able to quarantine from her using a different bedroom and bathroom. Pt does have family who can provide groceries and supplies. Pt has no preference on DME company should he need O2 at home. Pt states no concerns with going home at time of dc. Pt states no further concerns/needs. CM to follow. Advised pt to ask CM if any further question/concerns/needs arise, voices understanding. Pt Goal: Home Plan: Home
[2021-10-14] MEDS: dexAMETHasone 2 MG TABLET 6 MG PO (11:50)
[2021-10-14] MEDS: Insulin Lispro 100 UNIT/ML INSULN.PEN SC (11:50)
[2021-10-14 12:05] LABS: Bedside Glucose 177 mg/dL (70-110)
--- NOTE | 2021-10-14 15:04 | DS.PCM_ITS ---
Providers Date of Admission: 10/12/21 Primary Care Physician: Dr. Colby Gonzales, Reason For Visit: COVID Diagnosis Discharge Diagnosis (1) Acute respiratory failure: Status: Acute Code(s): J96.00 - Acute respiratory failure, unspecified whether with hypoxia or hypercapnia Qualifiers: Respiratory failure complication: hypoxia Qualified Code(s): J96.01 - Acute respiratory failure with hypoxia (2) Pneumonia due to COVID-19 virus: Status: Acute Code(s): U07.1 - COVID-19; J12.82 - Pneumonia due to coronavirus disease 2019 (3) YOVANY (acute kidney injury): Status: Acute Code(s): N17.9 - Acute kidney failure, unspecified (4) Metabolic acidosis: Status: Acute Code(s): E87.2 - Acidosis Medications at Discharge Home Medications Qbrelis 0.5 mg PO DAILY 11/14/16 albuterol sulfate [Ventolin HFA] 2 puff INHALATION Q6H PRN PRN 11/14/16 budesonide-formoterol [Symbicort] 2 puff INHALATION BID 11/14/16 montelukast 10 mg PO DAILY 11/14/16 Synjardy 1 tab PO BID 10/12/21 cimetidine 800 mg PO QHS 10/12/21 glimepiride 4 mg PO BID 10/12/21 dexamethasone 6 mg PO DAILY #8 tab 10/14/21 Hospital Course Operations None Procedures None Summary of Care Provided Minutes Spent on Discharge: 45 Hospital Course: Patient is a 56-year-old male with a past medical history as outlined was admitted through the ED on 10/12/2021 with a complaint of progressively worsening shortness of breath for 1 week. He had received a J&J vaccine in December 2020. He was however exposed to Covid as several of his coworkers had Covid [address] showed interstitial pneumonitis and was negative for PE. D-dimer was 0.82. He was admitted to be managed for acute hypoxic respiratory failure due to COVID-19 pneumonia. He was started on Decadron and remdesivir. Oxygen was weaned down to 2 L of oxygen. He also had mild metabolic acidosis and YOVANY was subsequently resolved with hydration of fluid. Patient felt better walking pulse ox showed that he needed 2 L of oxygen at home. He was discharged home on 10/14/2021 on 2 L of oxygen. He is to remain in isolation to complete a 20-day course of self-isolation. He is follow-up with his primary care doctor in 1 to 2 weeks. Patient seen and examined prior to discharge. He felt well and had no active complaints. Review of systems otherwise negative. Labs and vitals reviewed. Home medication reviewed and reconciled. Physical Exam Const alert, oriented x3 and no apparent distress General Appearance: cooperative, comfortable and well kempt Exam Limitations: no limitations HEENT normocephalic, head/scalp atraumatic and hearing grossly normal bilaterally Eyes PERRL and EOMs intact bilaterally Neck no lymphadenopathy Resp Resp Narrative: diminished breath sounds bibasally, no wheezes or crackles. on 2 L of oxygen. Cardio regular rate, regular rhythm, S1 normal heart sound, S2 normal heart sound and no murmurs GI normal to inspection, nondistended, normoactive bowel sounds, soft to palpation, non-tender and non-distended Extremity normal to inspection, full ROM and no clubbing, cyanosis or edema Skin no rashes or lesions noted Neuro oriented x3 and CN's II-XII intact bilaterally Sensorium / Orientation: awake and alert Psych affect normal Weight / BMI Weight Weight: 202 lb 6.15 oz Body Mass Index (BMI) 32.8 ABG / Lab / Microbiology Data Result Diagrams: 10/14/21 06:52 10/14/21 06:52 Laboratory: Laboratory Results - last 24 hr 10/13/21 16:42: POC Glucose 176 H 10/13/21 21:22: POC Glucose 151 H 10/14/21 06:50: POC Glucose 140 H 10/14/21 06:52: WBC 8.5, RBC 4.32 L, Hgb 12.4 L, Hct 37.9 L, MCV 87.7, MCH 28.7, MCHC 32.7, RDW Std Deviation 46.0 H, RDW Coeff of Jose 14.1, Plt Count 190, MPV 9.4, Immature Gran % (Auto) 4.000 H, Neut % (Auto) 77.1 H, Lymph % (Auto) 11.2 L , [place] % (Auto) 6.6, Eos % (Auto) 0.5, Baso % (Auto) 0.6, Absolute Neuts (auto) 6.5, Absolute Lymphs (auto) 0.95, Nucleated RBC % 0 10/14/21 06:52: Sodium 138, Potassium 4.3, Chloride 107, Carbon Dioxide 25.0, Anion Gap 6, BUN 41 H, Creatinine 1.14, Estim Creat Clear Calc 72.93, Est GFR (MDRD) Af Amer 85, Est GFR (MDRD) Non-Af 70, BUN/Creatinine Ratio 36.0 H, Glucose 123 H, Calcium 8.5, Total Bilirubin 0.50, AST 23, ALT 31, Alkaline Phosphatase 49, Total Protein 7.0, Albumin 2.5 L, Globulin 4.5 H, Al bumin/Globulin Ratio 0.6 L 10/14/21 11:47: POC Glucose 177 H Microbiology: Microbiology 10/12/21 15:40 Mucosa - Nasopharyngeal Respiratory Panel (PCR) - Final 10/12/21 17:45 Urine, Random Legionella Antigen - Final 10/12/21 17:45 Urine, Random Streptococcus pneumoniae Antigen (M - Final D/C Instructions Discharge Diet: Low fat / Low cholesterol Discharge Activity: Return to Normal Activity Call your doctor if you observe: Fever of 101 or Higher, Shortness of breath, Dizziness, Swelling in the ankles, Chest pain and Increased palpitations (irregular heartbeat) Meaningful Use Info Meaningful Use Diagnoses (Choose all that apply): None applicable Discharge Plan Admission Admit Date/Time: 10/12/21 11:55 Primary Reason for Your Visit: COVID pneumonia Attending Provider: Anne-Marie Dimas Primary Care Provider: Colby Gonzales Instructions Patient Instructions: Coronavirus Disease 2019 (COVID-19): Overview Additional Instructions / Restrictions: remain in self isolation till 10/25/2021 to complete 20 day course of self isolation since symptoms started. Use oxygen 2L as needed to help with shortness of breath Discharge Orders/Prescriptions Prescriptions: New dexamethasone 6 mg tablet 6 mg PO DAILY Qty: 8 RF: 0 Continued montelukast 10 MG tablet 10 mg PO DAILY RF: 0 budesonide-formoterol [Symbicort] 1 INHALER inhaler 2 puff inhalation BID RF: 0 Qbrelis 1 MG/ML solution 0.5 mg PO DAILY RF: 0 albuterol sulfate [Ventolin HFA] 1 INHALER inhaler 2 puff inhalation Q6H PRN PRN (Reason: Asthma) RF: 0 glimepiride 4 mg tablet 4 mg PO BID RF: 0 Synjardy 5-1,000 mg tablet 1 tab PO BID RF: 0 cimetidine 800 mg Tablet 800 mg PO QHS RF: 0 Referrals / Follow Up: Colby Gonzales DO [Primary Care Provider] - Within 2 Weeks Disposition Disposition (needs filled in before D/C Order can be placed): Home, Self Care Charges/Coding Visit Charges Inpatient E&M: 42430 Disch Hosp
--- NOTE | 2021-10-15 15:30 | CASEMGMT ---
DONAVAN LANTIGUA Discharge Follow-Up Phone Call. [place]: 5 Str[place]: 1 Discharge Date: 10/14/21 Adm Dx: COVID Call to pt to inquire about how he has been doing since being discharged from the hospital. He states, So far I'm doing pretty good and states, my breathing is feeling better. States he has been continuing to use the I.S and doing better with it now than I was. He was able to get the new prescription for Decadron @ [facility] and denies having any questions about the medications or discharge instructions. He has a f/u appt with Dr Gonzales next week either Thu or . The oxygen was delivered and he has been using it w/exertion. States he has been checking the oxygen levels and he will go down to 89-90% w/the o2 in place w/exertion but then will come up quickly to 94-95% once at rest. He denies having any questions or needs. Alayna BERNARD RN, CM
== END 2021-10-14 15:57 | disposition home or self-care (01) | DRG 177 ==
LOC: ED 09:19 → MS3 12:07
PROVIDERS: Admitting Provider Internal Medicine; Emergency Provider Student in an Organized Health Care Education/Training Program; PCP Student in an Organized Health Care Education/Training Program; Visit Provider Student in an Organized Health Care Education/Training Program
DX: U07.1 COVID-19 (principal); J96.01 Acute respiratory failure with hypoxia; J12.82 Pneumonia due to coronavirus disease 2019; N17.9 Acute kidney failure, unspecified; E11.649 Type 2 diabetes mellitus with hypoglycemia without coma; J45.909 Unspecified asthma, uncomplicated; I10 Essential (primary) hypertension; Z66 Do not resuscitate; J84.89 Other specified interstitial pulmonary diseases
CPT/HCPCS: 36415; 71045; 71275; 80053; 82962; 83605; 84484; 85025; 85379; 87449; 87633; 87635; 93005; 94640; 97802; 99285; J7030; J7050; Q9967; U0005; A4216; J1940; U0003

== ENCOUNTER 2021-12-03 16:43 | Emergency (ER) | payer OTHER, SELFPAY ==
[2021-12-03 16:44] VITALS: BP 127/82; PULSE 103; RESP 18; TEMP 36.4; O2SAT 99; BMI 30.8
--- NOTE | 2021-12-03 17:21 | ED.VIS.LOWEX ---
HPI History of Present Illness Chief Complaint: Lower Extremity Injury Detail of Chief Complaint: Right lower extremity pain and swelling Informant: patient Onset/Context/Timing Onset: Weeks Context: Gradual Onset Current Severity: Mild Maximum Severity: Moderate Narrative Narrative: Patient presents secondary to right lower extremity pain and swelling. He states he has got a torn meniscus in his knee. Over the past week he now has swelling down into his calf and even into his foot. He was sent today to rule out PE. Patient recently had a CTA of his chest that showed chronic lung changes from prior Covid, but no PE. [facility] Medical History Acute respiratory failure Asthma Diabetes Lipoma of abdominal wall Pneumonia due to COVID-19 virus Home Medications Qbrelis 0.5 mg PO DAILY 11/14/16 [History Last Taken 10/11/21 08:00] albuterol sulfate [Ventolin HFA] 2 puff INHALATION Q6H PRN PRN 11/14/16 [History Last Taken Unknown] budesonide-formoterol [Symbicort] 2 puff INHALATION BID 11/14/16 [History Last Taken 10/11/21 22:00] montelukast 10 mg PO QHS 11/14/16 [History Last Taken 10/11/21 22:00] Synjardy 1 tab PO BID 10/12/21 [History Last Taken 10/11/21 20:00] cimetidine 800 mg PO QHS 10/12/21 [History Last Taken Unknown] glimepiride 4 mg PO BID 10/12/21 [History Last Taken 10/11/21 18:00] albuterol sulfate 2.5 mg INHALATION Q4H 12/03/21 [History Last Taken Unknown] budesonide-formoterol 1 inh INHALATION DAILY 12/03/21 [History Last Taken Unknown] Allergy/AdvReac Type Severity Reaction Status Date / Time No Known Allergies Allergy Verified 12/03/21 16:45 Family History Mother COPD (chronic obstructive pulmonary disease) Father CVA (cerebral vascular accident) Surgical History H/O hernia repair H/O metal removed from eye Hx of tonsillectomy Social History household members: spouse Smoking Status: Never smoker alcohol intake: never substance use type: does not use ROS ROS ED Constitutional Constitutional ED: Denies chills or fever(s) Eyes Eyes: Denies change in vision ENT ENT ED: Denies sore throat Cardiovascular Cardiovascular: Denies chest pain Respiratory/Chest Respiratory/Chest: Reports dyspnea and other Details: Chronic dyspnea after Covid infection, unchanged over the past week ; Denies cough Gastrointestinal Gastrointestinal: Denies abdominal pain, diarrhea, nausea or vomiting Musculoskeletal Musculoskeletal: Reports arthralgias; Denies back pain Integumentary Denies rash Neurologic Neurologic: Denies headache(s) or weakness Allergic/Immunologic Allergic/Immunologic ED: Denies urticaria EXAM Physical Exam Const Vital Signs: 12/03/21 16:44 Temperature 97.5 F L Temperature Source Temporal Pulse Rate 103 H Respiratory Rate 18 Blood Pressure 127/82 H Blood Pressure Mean 97 Pulse Ox 99 Oxygen Delivery Method Room Air Positive well nourished and well developed General Appearance ED: well developed HEENT normocephalic and atraumatic Eyes PERRL Neck full ROM and supple Chest Wall inspection of chest normal and palpation of chest normal Resp normal respiratory effort and clear to auscultation bilaterally Cardio regular rate and regular rhythm Extremity Extremity Narrative: Psoriasis noted on the lateral portion of the right lower extremity. 2+ edema to the right lower extremity. Strong distal pulses. Full range of motion. Neuro oriented x3 Sensorium / Orientation: alert MDM MDM MDM Narrative Medical decision making narrative: Venous ultrasound of the right leg obtained. Radiography Diagnostic Testing: Clinical Impression(s) from Imaging Studies Venous Duplex 12/03/21 17:32 IMPRESSION: There is no demonstrated deep venous thrombosis. Please see technologist report in PACS for further details for their impression/ worksheet/ details/ etc. Electronically Signed: Justo Mahoney MD at 19:27 EST , Service support , Treatment and Re-Evaluation Comments:: Venous ultrasound reveals no evidence of DVT. There is a 3.1 x 4.2 cm cyst just behind the knee. Test results are discussed with patient. He states he is supposed to be seeing orthopedics about a meniscal repair and he will speak with them regarding the cyst. Discharge Plan Triage Chief Complaint: Lower Extremity Injury ED Provider: Christy Falk Dx/Rx/DC Orders Clinical Impression: Gregg's cyst of knee Instructions: ED Gregg's Cyst Prescriptions: No Action montelukast 10 MG tablet 10 mg PO QHS RF: 0 budesonide-formoterol [Symbicort] 1 INHALER inhaler 2 puff inhalation BID RF: 0 Qbrelis 1 MG/ML solution 0.5 mg PO DAILY RF: 0 albuterol sulfate [Ventolin HFA] 1 INHALER inhaler 2 puff inhalation Q6H PRN PRN (Reason: Asthma) RF: 0 glimepiride 4 mg tablet 4 mg PO BID RF: 0 Synjardy 5-1,000 mg tablet 1 tab PO BID RF: 0 cimetidine 800 mg Tablet 800 mg PO QHS RF: 0 albuterol sulfate 2.5 mg /3 mL (0.083 %) solution for nebulization 2.5 mg inhalation Q4H RF: 0 budesonide-formoterol 160-4.5 mcg/actuation HFA aerosol inhaler 1 inh INHALATION DAILY RF: 0 Primary Care Provider: Colby Gonzales Referrals: Kayode Conner MD [NON-STAFF] - As Needed Colby Gonzales DO [Primary Care Provider] - Adrian Muller MD [STAFF PHYSICIAN] - As Needed Disposition Disposition: Home, Self Care
--- NOTE | 2021-12-03 17:32 | US_ITS ---
STUDY: VENOUS DOPPLER ULTRASOUND - RIGHT LOWER EXTREMITY REASON FOR EXAM: Male, 56 years old. LEG PAIN AND SWELLING RT LEG SWELLING TECHNIQUE: Ultrasound evaluation of the deep vein system to include ramirez-scale imaging and compression was performed. Ramirez-scale imaging and Doppler sonographic evaluation, including duplex spectral analysis and qualitative color flow sonography, was performed. COMPARISON: None. FINDINGS: Common Femoral Vein: Normal compression, spontaneity and augmentation. Normal color Doppler. Common Femoral Vein/Greater Saphenous Junction: Normal compression, spontaneity and augmentation. Normal color Doppler. Superficial Femoral Proximal: Normal compression, spontaneity and augmentation. Normal color Doppler. Superficial Femoral Middle: Normal compression, spontaneity and augmentation. Normal color Doppler. Superficial Femoral Distal: Normal compression, spontaneity and augmentation. Normal color Doppler. Popliteal Vein: Normal compression, spontaneity and augmentation. Normal color Doppler. Posterior Tibial Vein: Normal compression, spontaneity and augmentation. Normal color Doppler. Peroneal Vein: Normal compression, spontaneity and augmentation. Normal color Doppler. There is a right popliteal cyst. There is no demonstrated deep venous thrombosis. US/Venous Duplex Imag/Limited/Uni IMPRESSION: There is no demonstrated deep venous thrombosis. Please see technologist report in PACS for further details for their impression/ worksheet/ details/ etc. Electronically Signed: uJsto Mahoney MD at 19:27 EST , Service support ,
[2021-12-03 19:50] VITALS: BP 132/80; PULSE 86; RESP 15; O2SAT 97
== END 2021-12-03 19:55 | disposition home or self-care (01) ==
PROVIDERS: Emergency Provider Emergency Medicine; PCP Student in an Organized Health Care Education/Training Program; Visit Provider Emergency Medicine
DX: M71.21 Synovial cyst of popliteal space [Baker], right knee (principal); E11.9 Type 2 diabetes mellitus without complications; Z79.84 Long term (current) use of oral hypoglycemic drugs; Z86.16 Personal history of COVID-19
CPT/HCPCS: 93971; 99282

== ENCOUNTER 2024-06-07 10:22 | Emergency (ER) | payer OTHER, SELFPAY ==
[2024-06-07 10:22] VITALS: BP 147/109; BP 151/111; PULSE 97; PULSE 99; RESP 14; RESP 18; TEMP 35.6; O2SAT 98; BMI 31.0
[2024-06-07 10:39] VITALS: O2SAT 97
--- NOTE | 2024-06-07 10:51 | EKG12_ITS ---
Test Reason : SOB Blood Pressure : / mmHG Vent. Rate : 093 BPM Atrial Rate : 093 BPM P-R Int : 164 ms QRS Dur : 078 ms QT Int : 326 ms P-R-T Axes : 036 016 026 degrees QTc Int : 405 ms Sinus rhythm with Fusion complexes Otherwise normal ECG Confirmed by Abdoul Del Rosario ([id number]), commercial production editor MAEVE CALABRESE ([id number]) on 06/08/2024 9:55:35 AM Referred By: Confirmed By:Abdoul Del Rosario
--- NOTE | 2024-06-07 10:53 | ED.VIS.CHEST ---
HPI History of Present Illness Chief Complaint: Asthma Narrative Narrative: 59-year-old male presenting with shortness of breath and chest tightness. He states he has a history of asthma but does not feel like he is wheezing. He states his shortness of breath is about the same when he is walking or if he sitting. Denies lower extremity edema. Denies orthopnea. No fevers or chills. No cough. Chest tightness has been constant since yesterday. Patient denies cardiac history. He states he does not have hypertension but is on lisinopril for his kidney function. He states that on 5 mg. PFSH [facility] Medical History Pneumonia due to COVID-19 virus Acute respiratory failure Lipoma of abdominal wall Asthma Diabetes Home Medications ?Medication ?Instructions ?Recorded ?Last Taken ?Type albuterol sulfate 90 mcg/actuation 2 puff inhalation Q6H PRN PRN 11/14/16 Unknown History aerosol inhaler (Ventolin HFA) Asthma budesonide-formoterol HFA 160 2 puff inhalation BID asthma 11/14/16 10/11/21 22:00 History mcg-4.5 mcg/actuation aerosol inhaler (Symbicort) lisinopril 1 mg/mL oral solution 0.5 mg PO DAILY kidneys 11/14/16 10/11/21 08:00 History (Qbrelis) montelukast 10 mg tablet 10 mg PO QHS breathing 11/14/16 10/11/21 22:00 History cimetidine 800 mg tablet 800 mg PO QHS stomach acid' 10/12/21 Unknown History empagliflozin 5 mg-metformin 1,000 1 tab PO BID diabetes 10/12/21 10/11/21 20:00 History mg tablet (Synjardy) glimepiride 4 mg tablet 4 mg PO BID diabetes 10/12/21 10/11/21 18:00 History albuterol sulfate 2.5 mg/3 mL 2.5 mg inhalation Q4H 12/03/21 Unknown History (0.083 %) solution for nebulization budesonide-formoterol HFA 160 1 inh inhalation DAILY 12/03/21 Unknown History mcg-4.5 mcg/actuation aerosol inhaler prednisone 10 mg tablet 50 mg (5 x 10 mg) PO DAILY 5 days 06/07/24 Unknown Rx #25 TABLETS Allergy/AdvReac Type Severity Reaction Status Date / Time No Known Allergies Allergy Verified 06/07/24 10:23 Family History Mother COPD (chronic obstructive pulmonary disease) Father CVA (cerebral vascular accident) Surgical History H/O metal removed from eye H/O hernia repair Hx of tonsillectomy Social History household members: spouse Smoking Status: Never smoker alcohol intake: never substance use type: does not use ROS ROS ED Constitutional Constitutional ED: Denies chills, fever(s) or sweats Eyes Eyes: Denies blurry vision or change in vision ENT ENT ED: Denies ear pain or sore throat Cardiovascular Cardiovascular: Reports chest pain; Denies orthopnea, palpitations or racing heartbeat Respiratory/Chest Respiratory/Chest: Reports dyspnea; Denies cough, dyspnea on exertion, orthopnea or sputum Gastrointestinal Gastrointestinal: Denies abdominal pain, constipation, diarrhea, nausea or vomiting Genitourinary Genitourinary ED: Denies dysuria, hematuria or urinary frequency Musculoskeletal Musculoskeletal: Denies arthralgias, myalgias or neck pain Integumentary Denies abscess, Abrasions or rash Neurologic Neurologic: Denies headache(s), paresthesias or weakness Psychiatric Psychiatric: Denies anxiety, depression, suicidal ideation or suicidal thoughts Endocrine Endocrinology: Denies polydipsia or polyuria EXAM Physical Exam Const Vital Signs: 06/07/24 10:22 06/07/24 10:22 06/07/24 10:39 Temperature 96.1 F L Temperature Source Temporal Pulse Rate 97 99 Respiratory Rate 18 14 Respiratory Effort Short of Breath Respiratory Depth Normal Respiratory Pattern Normal Blood Pressure 147/109 H 151/111 H Blood Pressure Mean 121 124 Pulse Ox 98 98 Oxygen Delivery Method Room Air Room Air Room Air 06/07/24 10:53 06/07/24 11:10 06/07/24 11:10 Temperature Temperature Source Pulse Rate 91 Respiratory Rate 16 Respiratory Effort Respiratory Depth Respiratory Pattern Normal Blood Pressure Blood Pressure Mean Pulse Ox 99 Oxygen Delivery Method Room Air Room Air 06/07/24 12:22 06/07/24 14:13 Temperature 98 F Temperature Source Pulse Rate 84 78 Respiratory Rate 20 H 18 Respiratory Effort Respiratory Depth Respiratory Pattern Blood Pressure 128/80 H 125/80 H Blood Pressure Mean 96 95 Pulse Ox 97 98 Oxygen Delivery Method Room Air Positive well nourished General Appearance ED: NAD HEENT Reports moist mucous membranes normocephalic and atraumatic Chest Wall inspection of chest normal Resp normal respiratory effort and clear to auscultation bilaterally Auscultation: Negative for rales, rhonchi or wheezes Cardio regular rate and regular rhythm Extremity General Extremety ED: Negative for edema General Extremity: Negative for edema Neuro oriented x3 and CN's II-XII intact bilaterally Sensorium / Orientation: awake and alert Motor Exam: strength 5/5 throughout Psych mental status grossly normal Skin no rashes or lesions noted MDM MDM MDM Narrative Medical decision making narrative: Patient presenting with dyspnea and chest tightness. Differential includes ACS, pneumonia, asthma flare, bronchitis, CHF. Patient PERC negative. CBC will be obtained to assess white blood cell count, hemoglobin, platelets. BMP to assess renal function, electrolytes, glucose. High-sensitivity troponin and EKG to assess for ischemia/dysrhythmia. BNP to assess for CHF. Chest x-ray to rule out pneumonia or CHF. Patient does not sound wheezy on exam but he was given a DuoNeb to see if this makes him feel better subjectively. EKG interpreted by myself shows a sinus rhythm at 93 bpm without sign of ischemic change. Chest x-ray interpreted myself shows no acute cardiopulmonary process. Radiologist interprets as agrees. CBC within normal limits. BMP shows normal electrolytes and slightly elevated creatinine at 1.31. High-sensitivity troponin is less than 3. BNP 2.7. Reevaluated the patient after he was given a DuoNeb and he states that subjectively feels better at this point given Solu-Medrol 125 mg. He is comfortable being discharged home with a prednisone burst and he has breathing treatments at home. Return precautions were discussed Impression: 1. Asthma exacerbation 2. Chest tightness Lab Data Attestation: I reviewed the patient's lab results. Labs: Laboratory Results - last 24 hr 06/07/24 10:47 WBC 8.7 RBC 5.18 Hgb 14.6 Hct 43.7 MCV 84.4 MCH 28.2 MCHC 33.4 RDW Std Deviation 43.6 RDW Coeff of Jose 14.2 Plt Count 174 MPV 8.6 Immature Gran % (Auto) 0.800 Neut % (Auto) 68.6 Lymph % (Auto) 21.1 [place] % (Auto) 6.7 Eos % (Auto) 2.3 Baso % (Auto) 0.5 Absolute Neuts (auto) 6.0 Absolute Lymphs (auto) 1.84 Nucleated RBC % 0 Sodium 138 Potassium 4.1 Chloride 109 H Carbon Dioxide 20.0 L Anion Gap 9 BUN 30 H Creatinine 1.31 H Estim Creat Clear Calc 69.59 Est GFR (MDRD) Af Amer 72 Est GFR (MDRD) Non-Af 59 L BUN/Creatinine Ratio 22.9 H Glucose 186 H Calcium 9.8 Troponin I High Sens < 3 L B-Natriuretic Peptide 2.7 Radiography Diagnostic Testing: Clinical Impression(s) from Imaging Studies Chest X-Ray 06/07/24 10:58 IMPRESSION: Normal x-ray examination of the chest. Electronically Signed: Greg Sommer MD at 11:24 EDT , Discharge Plan Triage Chief Complaint: Asthma ED Provider: Bishop Mix Dx/Rx/DC Orders Instructions: ED Asthma, Acute (Adult) Prescriptions: New prednisone 10 mg tablet 50 mg PO DAILY 5 Days Qty: 25 0RF Rx Instructions: 6 po qd x 3 days, 4 po qd x 3 days, 2 po qd x 3 days, 1 po qd x 3 days No Action montelukast 10 MG tablet 10 mg PO QHS budesonide-formoterol [Symbicort] 1 INHALER inhaler 2 puff inhalation BID Qbrelis 1 MG/ML solution 0.5 mg PO DAILY albuterol sulfate [Ventolin HFA] 1 INHALER inhaler 2 puff inhalation Q6H PRN PRN (Reason: Asthma) glimepiride 4 mg tablet 4 mg PO BID Synjardy 5-1,000 mg tablet 1 tab PO BID Patient Comments: Take 1 tablet by mouth twice daily with meals. cimetidine 800 mg Tablet 800 mg PO QHS albuterol sulfate 2.5 mg /3 mL (0.083 %) solution for nebulization 2.5 mg inhalation Q4H budesonide-formoterol 160-4.5 mcg/actuation HFA aerosol inhaler 1 inh INHALATION DAILY Stand Alone Forms: ED Work / School Excuse Primary Care Provider: Colby Gonzales Referrals: Colby Gonzales DO [Primary Care Provider] - Print Language: Malaysian Disposition Disposition: Home, Self Care Discharge Date/Time: 06/07/24 14:14
--- NOTE | 2024-06-07 10:58 | RAD_ITS ---
STUDY: X-RAY CHEST REASON FOR EXAM: Male, 59 years old. Shortness of breath and chest pain. History of asthma. TECHNIQUE: Single AP portable view of the chest. COMPARISON: None. FINDINGS: EKG electrodes are seen. The lungs are clear and expanded. There is no demonstrated pleural abnormality. Normal size heart. Normal mediastinum and marce. Normal visualized pulmonary arteries. Normal visualized aortic arch and descending thoracic aorta. Normal visualized thoracic spine. Normal visualized ribs, clavicles, and shoulders. There is no demonstrated abnormality of the visualized soft tissue structures of the upper abdomen. RAD/Chest 1 View (Portable) IMPRESSION: Normal x-ray examination of the chest. Electronically Signed: Greg Sommer MD at 11:24 EDT ,
[2024-06-07] MEDS: Ipratropium/Albuterol Sulfate 3 ML AMPUL.NEB INHALATION (11:09)
[2024-06-07 11:10] VITALS: PULSE 91; RESP 16; O2SAT 99
[2024-06-07 11:12] LABS: Absolute Lymphocyte Count 1.84 X10^3/uL (0.83-4.51); Basophil# 0.04 X10^3/uL; Basophil% 0.5 % (0-1); Eosinophils% 2.3 % (0-5); Hematocrit 43.7 % (40-54); Hemoglobin 14.6 g/dL (13.0-16.5); Lymphocyte # 1.84 X10^3/ul (0.83-4.51); Lymphocyte % 21.1 % (19-41); Mean Corp Hgb Conc 33.4 g/dL (32-36); Mean Corpuscular Hgb 28.2 pg (27.0-32.0); Mean Corpuscular Volume 84.4 fL (80-94); Mean Platelet Vol. 8.6 fl (6.2-12.0); Monocyte# 0.58 X10^3/uL; Monocyte% 6.7 % (0-10); NRBC Flagged by Analyzer 0 % (0-5); Neutrophil # 5.97 X10^3/uL (2.7-7.7); Neutrophil % 68.6 % (47-70); Platelet Count 174 K/mm3 (150-450); RBC Distribution Width CV 14.2 % (11.6-14.6); RBC Distribution Width SD 43.6 fl (35.1-43.9); Red Blood Count 5.18 M/mm3 (4.6-6.2); White Blood Count 8.7 K/mm3 (4.4-11.0)
[2024-06-07 11:37] LABS: BNP,B-Type NATRIURETIC PEPTIDE 2.7 pg/mL (0-100)
[2024-06-07 11:43] LABS: Anion Gap 9 (5-15); BUN 30 mg/dL (7-18); BUN/Creat Ratio 22.9 RATIO (10-20); Calcium,Total 9.8 mg/dL (8.5-10.1); Chloride 109 mmol/L (98-107); Creatinine, Serum 1.31 mg/dL (0.70-1.30); EST Glomerular Filtration Rate 59 mL/min (>60); Est Glom Filt Rate - Afr Amer 72 mL/min (>60); Estimated Creatinine Clearance 69.59 ml/min; Glucose 186 mg/dL (74-106); Potassium 4.1 mmol/L (3.5-5.1); Sodium Level 138 mmol/L (136-145); Troponin-I HS < 3 pg/mL (3.0-78.0)
[2024-06-07 12:22] VITALS: BP 128/80; PULSE 84; RESP 20; O2SAT 97
[2024-06-07] MEDS: MethylPREDNISolone 125 MG/2 ML Vial IV (14:09)
[2024-06-07 14:13] VITALS: BP 125/80; PULSE 78; RESP 18; TEMP 36.6; O2SAT 98
== END 2024-06-07 14:14 | disposition home or self-care (01) ==
PROVIDERS: Emergency Provider Student in an Organized Health Care Education/Training Program; PCP Student in an Organized Health Care Education/Training Program; Visit Provider Student in an Organized Health Care Education/Training Program
DX: J45.901 Unspecified asthma with (acute) exacerbation (principal); E11.9 Type 2 diabetes mellitus without complications; R07.89 Other chest pain; R06.02 Shortness of breath; Z79.84 Long term (current) use of oral hypoglycemic drugs; Z79.51 Long term (current) use of inhaled steroids
CPT/HCPCS: 71045; 80048; 83880; 84484; 85025; 93005; 94640; 96374; 99283; A4216